=== PATIENT | male | born 1950 | race Caucasian/White ===

== ENCOUNTER 2024-01-28 19:08 | Emergency (ER) | payer MEDICARE, OTHER ==
[~2024-01-28] VITALS: Ht 170.2 cm; Wt 71.2 kg
[2024-01-28] MEDS ORDERED: HYDROCODONE/APAP 5/325MG TABLET ONE (20:47)
[2024-01-28] MEDS: HYDROCODONE/APAP 5/325MG TABLET PO ONE (20:57)
[2024-01-28] MEDS ORDERED: HYDR-4209 PO (21:57)
[2024-01-28] MEDS ORDERED: ACET-2605 PO (21:57)
[2024-01-28] MEDS ORDERED: IBUP-1955 PO (21:57)
[2024-01-28 22:15] VITALS: BP 155/86; TEMP 98.2; O2SAT 100
[2024-01-28] MEDS: LIDOCAINE 5% (PATCH) 1 EA PATCH TP ONE (22:15)
[2024-01-28] MEDS: IBUPROFEN 600 MG TABLET PO ONE (22:15)
== END 2024-01-28 22:16 | disposition home or self-care (01) ==
LOC: ER 19:33
DX: M25.552 Pain in left hip (principal); M79.652 Pain in left thigh; I10 Essential (primary) hypertension; E11.9 Type 2 diabetes mellitus without complications; K74.60 Unspecified cirrhosis of liver; W01.0XXA Fall on same level from slipping, tripping and stumbling without subsequent striking against object, initial encounter; Y93.89 Activity, other specified; Y92.89 Other specified places as the place of occurrence of the external cause; Y99.8 Other external cause status
CPT/HCPCS: 73502; 73552